=== PATIENT | male | born 1985 | race Caucasian/White ===

== ENCOUNTER 2023-03-30 15:15 | Emergency (ER) | payer BC, SELFPAY ==
[2023-03-30 15:40] VITALS: BMI 28.0
--- NOTE | 2023-03-30 15:41 | ED.EXTPRO1 ---
HPI - Extremity Problem General Chief complaint: Extremity Problem, Nontraumatic Stated complaint: KNEE PAIN Time Seen by Provider: 03/30/23 15:41 History of Present Illness HPI Narrative: He presents to the emergency department complaining of left knee swelling. Patient denies any trauma. He states on Tuesday he was grilling and everything was fine. Today after he got up he noted that there was swelling to the left knee. He denies any fever, chills, lower extremity edema. Denies any chest pain, or shortness of breath. Denies any history of blood clots.And eyes any weakness. He has been able to walk but had some pain when he flexes the knee. Related Data Previous Rx's Medication Instructions Recorded methylprednisolone 4 mg tablets in 4 mg PO DAILY #21 ea 03/30/23 a dose pack (Medrol (Nick)) Allergies Allergy/AdvReac Type Severity Reaction Status Date / Time No Known Drug Allergies Allergy Verified 03/30/23 15:39 Review of Systems ROS Status of ROS 10 or more systems reviewed and unremarkable except as noted in history and below Exam Narrative Exam Narrative: Vital signs reviewed and nurse's notes. The patient is not hypoxic. General: Alert, no acute distress, patient resting comfortably Skin: warm, intact, no pallor noted Head: Normocephalic, atraumatic Eye: Normal conjunctiva Respiratory: No acute distress Musculoskeletal: No evidence of deformity to the L knee. There is Minimal patellar swelling. There is no ecchymosis. No erythema or warmth noted. DP and PT pulses are intact 2+. Normal sensation, normal capillary refill less than 2 seconds. There is no cyanosis or mottling noted. The patient has tenderness to of the right knee. The patient has no laxity with varus or valgus stressing. The patient has negative anterior drawer and Dwayne testing. The patient was able to flex and extend although with pain. Patient was able to extend leg off the cart without difficulty. No tenderness noted to the 5th MT, midfoot, ankle or proximal fibular area. There is no pain with calcaneal squeeze, achilles tendon is intact and no defect is palpated. The patient has no pelvic instability. The patient has no shortening or rotation noted to the bilateral lower extremities. Neurological: alert and orient x4, normal sensory and motor observed. Psychiatric: Cooperative Constitutional Vital Signs - 24 hr 03/30/23 15:46 Pulse Rate [Left] 78 Course Vital Signs Vital signs: Vital Signs Pulse Rate 78 03/30/23 15:46 Pulse Rate 78 03/30/23 15:46 MDM - Extremity (Nontraumatic) MDM Narrative Medical decision making narrative: A strep order. Discussed with patient and spouse. Patient's given a Medrol Dosepak. He will continue taking Motrin as needed at home for pain. He will follow up with primary care doctor and or so if symptoms are not improved. At this time the patient is without objective evidence of an acute process requiring hospitalization or inpatient management. The patient has remained hemodynamically stable. No additional indication for emergent studies at this time. I answered all questions. Discussed discharge instructions including standard anticipatory guidance and what should prompt a return to the emergency department, including if they get worse are not getting better or develops any new or concerning symptoms. I've given them specific time frame in which to follow-up, and who to follow-up with. The patient demonstrates understanding. Patient is nontoxic and stable for discharge with outpatient follow-up. This note was created with the assistance of a speech recognition program. Although the intention is to generate documents that actually reflects the content of the visit, no guarantees can be provided that every mistake has been identified and corrected by editing. Discharge Plan Discharge Chief Complaint: Extremity Problem, Nontraumatic Clinical Impression: Patellar bursitis of left knee Patient Disposition: Home, Self-Care Time of Disposition Decision: 16:20 Mode of Transportation: Private Vehicle Prescriptions / Home Meds: New methylprednisolone [Medrol (Nick)] 4 mg tablets,dose pack 4 mg PO DAILY Qty: 21 0RF Instructions: Knee Bursitis (ED) Additional Instructions: Use the x-ray As discussed. RICE, continue taking Motrin. Take the medication as instructed. Follow up with primary care doctor return to the emergency department with any problems.Concerns as discussed. Stand Alone Forms: Portal Instructions Referrals: JOHNY SINCLAIR [Primary Care Provider] - 1 week
--- NOTE | 2023-03-30 15:45 | XR_ITS ---
The [address] [address] Patient Name: OVI ROMERO MRN: [id number] date: 1985 Sex: M Assigned Patient Location: ER Current Patient Location: ED.MAIN Accession/Order Number: [id number] Exam Date: 03/30/2023 15:40 Report Date: 03/30/2023 15:57 At the request of: FABBY LAST Procedure: XR knee LT 4V PROCEDURE: XR knee LT 4V HISTORY: LEFT KNEE PAIN ; acute left knee pain medial to patella, swelling, no known injury COMPARISON: None. FINDINGS: BONES:No fracture, acute abnormality, or significant arthropathy. SOFT TISSUES:Swelling anterior to the patella. No radiopaque foreign body. EFFUSION:None visible. OTHER: Negative. IMPRESSION: 1. No acute bone abnormality or significant degenerative joint disease. 2. Anterior soft tissue swelling suggestive of bursitis. Electronically authenticated by: JASON SHORT Date: 03/30/2023 15:57
[2023-03-30 15:46] VITALS: PULSE 78
== END 2023-03-30 16:46 | disposition home or self-care (01) ==
PROVIDERS: Emergency Provider Emergency Medicine; PCP Internal Medicine
DX: M70.52 Other bursitis of knee, left knee (principal)
CPT/HCPCS: 73564; 99283